=== PATIENT | male | born 1950 | race Caucasian/White ===

== ENCOUNTER 2022-03-29 10:45 | Inpatient (IN) | payer MEDICARE ==
[2022-03-29] VITALS (25 sets, daily range): BP systolic 99–158; BP diastolic 43–107
[~2022-03-29] VITALS: Ht 167.6 cm; Wt 107.0 kg
--- NOTE | 2022-03-29 11:00 | NUR ---
ATTEMPTED TO CALL PT FROM WAITING ROOM; PT IN BATHROOM AT THIS TIME
--- NOTE | 2022-03-29 11:40 | NUR ---
PT CONTINUED IN BATHROOM; CHECKED ON PT AND DENIES DISTRESS;
[2022-03-29 12:47] LABS: HEMATOCRIT 49.1 % (39.0-50.0); HEMOGLOBIN 16.5 g/dl (14.0-18.0); IMMATURE GRANULOCYTES 0.2 % (0.0-5.0); MEAN CELL VOLUME 93.3 fL CALC (80.0-100.0); MEAN CORPUSCULAR HGB 31.4 pG CALC (26.0-32.0); MEAN CORPUSCULAR HGB CONC 33.6 g/dL CAL (32.0-36.0); NEUT# 11.06 thou/uL (1.82-7.42); RED BLOOD COUNT 5.26 mill/uL (4.70-6.10); RED CELL DISTRI WIDTH 14.2 % (11.5-15.5)
--- NOTE | 2022-03-29 12:54 | NUR ---
PATIENT REPORTS BEING ON ORAL ANTIBIOTICS FOR DENTAL PAIN. NOTED TO HAVE MILD SWELLING TO LEFT LOWER JAW.
[2022-03-29 12:58] LABS: ALBUMIN 4.9 g/dL (3.2-5.0); ALKALINE PHOSPHATASE 65 u/l (38-126); ANION GAP 20 (6-22 (CALC)); BILIRUBIN, TOTAL 1.5 mg/dL (0.0-1.4); BUN 13 mg/dL (8-23); BUN/CREATININE RATIO 12 (12-20 (CALC)); CARBON DIOXIDE 19 mmol/l (22-30); CHLORIDE 101 mmol/l (95-108); GFR FOR AFR.AMER. > 60 ML/MIN (>=60 (CALC)); GFR OTHER RACES > 60 ML/MIN (>=60 (CALC)); POTASSIUM 4.2 mmol/l (3.5-5.1); SGOT/AST 26 u/l (19-48); SODIUM 136 mmol/l (137-146); TOTAL PROTEIN 7.8 g/dL (6.3-8.2)
--- NOTE | 2022-03-29 13:30 | NUR ---
MED REC COMPLETED WITH PATIENT. URINAL GIVEN
[2022-03-29] MEDS ORDERED: DILT-XR120 MG PO (13:36)
[2022-03-29] MEDS ORDERED: METFORMIN500 M2 PO (13:37)
[2022-03-29] MEDS ORDERED: LOPRESSOR50 M1 PO (13:37)
[2022-03-29] MEDS ORDERED: LISINOP/HCTZ1 TA1 PO (13:38)
[2022-03-29] MEDS ORDERED: JARDIANCE25 MG PO (13:38)
[2022-03-29] MEDS ORDERED: ASPIRIN81 MG PO (13:38)
[2022-03-29] MEDS ORDERED: PRAVASTATIN80 MG PO (13:39)
[2022-03-29 14:04] LABS: URINE BILIRUBIN - DIPSTICK NEGATIVE (NEGATIVE); URINE BLOOD DIPSTICK TRACE-INTACT (NEGATIVE); URINE COLOR YELLOW; URINE GLUCOSE - DIPSTICK >=1000 mg/dL (NEGATIVE); URINE KETONE 15 mg/dL (NEGATIVE); URINE LEUK ESTERASE NEGATIVE (NEGATIVE); URINE NITRITE - DIPSTICK NEGATIVE (Negative); URINE PH 5.5 (4.5-8.0); URINE PROTEIN - DIPSTICK NEGATIVE (NEG-TRACE); URINE SPECIFIC GRAVITY <=1.005; URINE UROBILINOGEN - DIPSTICK 0.2 E.U./dL (0.2)
--- NOTE | 2022-03-29 14:12 | NUR ---
AT BEDSIDE TO DISCUSS RESULTS AND PLAN OF CARE WITH PATIENT
--- NOTE | 2022-03-29 15:00 | NUR ---
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
--- NOTE | 2022-03-29 15:48 | NUR ---
PT ARRIVED ON UNIT @ 1505 TRANSPORTED VIA STRETCHER AND TRANSFERRED TO BED. ALERT AND ORIENTED, SETTLED IN ROOM, ORIENTED TO ROOM AND CALL RUBY, TELE MONITOR IN PLACE, CALL RUBY IN REACH AND BED LOCKED IN LOWEST POSITION.
--- NOTE | 2022-03-29 20:35 | NUR ---
PHYSICIAN NOTIFIED OF HEART RATE 170'S. PATIENT HAS CARDIZEM 120MG AND METOPROLOL 100MG SCHEDULED. NURSE SUGGESTED IV MEDICATION, PHYSICIAN INSTRUCTED TO ADMINISTER CARDIZEM 120MG PO, TRANSFER TO ICU, THEN FOLLOW UP WITH METOPROLOL.
--- NOTE | 2022-03-29 20:55 | NUR ---
ORDERS CARRIED OUT PRESCRIBED. TRANSFERRED PATIENT TO ICU BED 3 VIA WHEELCHAIR. REPORT HAND OFF TO NURSE HALINA MENDES.
--- NOTE | 2022-03-29 21:00 | NUR ---
RECEIVED PATIENT FROM MED/SURG AT THIS TIME BEDSIDE REPORT GIVEN BY RN. PATIENT PLACED ON STOCK REPLENISHER AND READING AFIB AND HR OF 133 BP AT THIS TIME IS 117/75. PATIENT GIVEN ICU ORIENTATION AND FALL SAFETY SHEET SIGNED. PATIENT DOES VERBALIZES UNDERSTANDING OF TRANSFER AT THIS TIME. PATIENT WAS STARTED ON .9 NORMAL SALINE AT 100 AT THIS TIME. PATIENT FOLLOWS ALL COMMANDS AND DENIES ANY PAIN OR NEEDS AT THIS TIME. TEMP IS 98.2 SIDERAILS ARE UP CALL LIGHT IS WITHIN REACH AT THIS TIME. WILL CONTINUE TO MONITOR.
--- NOTE | 2022-03-29 21:48 | NUR ---
PATIENT GIVEN LOPRESSOR PO 100MG AT THIS TIME. BP CURRENTLY IS 125/61. WILL CONTINUE TO MONITOR.
--- NOTE | 2022-03-29 22:02 | NUR ---
PATIENT RESTING IN BED AT THIS TIME. PATIENT DENIES ANY NEEDS AND DENIES ANY COMPLAINTS OF PAIN AT THIS TIME. PATIENT TECHNICIAN TEST SYSTEMS READING AFIB AND HR OF 145 WITH OCCASSIONAL PVC. SPO2 IS CURRENTLY 94% ON ROOMAIR AND BP AT IS TIME IS 117/66. DR. KHAN CALLED TO GIVE STATUS UPDATE ON PATIENT AT THIS TIME AND GAVE ORDERS TO CONTINUE IV FLUIDS AND TO DO A STAT MAG AND LACTIC ACID LEVEL. ALL ORDERS PLACED IN SYSTEM AND WILL FOLLOW UP WITH PHYSICIAN WHEN RESULTS ARE IN .
--- NOTE | 2022-03-29 22:54 | NUR ---
DR. TAYLOR CALLED REGARDING LACTIC ACID TEST RESULTS OF 2.6 ORDERS GIVEN AT THIS TIME FOR 500ML BOLUS OF NORMAL SALINE AND THEN 100 ML/HR AFTER BOLUS GIVEN AND REPEAT LACTIC IN 2 HOURS.
[2022-03-30] VITALS (61 sets, daily range): BP systolic 110–156; BP diastolic 54–98
--- NOTE | 2022-03-30 00:04 | NUR ---
PATIENT AWAKE AND ALERT AND ORIENTED X 3. CARDIZEM DRIP STARTED AT THIS TIME PER PHYSICIAN ORDERS AND PROTOCOL. CONSULTING PRACTICE DIRECTOR SHOWING HR OF 123 WITH OCCASIONAL PVC'S AT THIS TIME BP IS CURRENTLY 142/91 AT THIS TIME. PATIENT LOYD ANY SHORTNESS OF BREATH AND SPO2 IS CURRENTLY 93% ON ROOM AIR. SIDERAILS ARE UP CALL LIGHT IS WIHTIN REACH.
--- NOTE | 2022-03-30 00:51 | NUR ---
LAB IN TO DRAW LACTIC ACID AT THIS TIME. CARDIZEM DRIP GOING AT 15MG/HR AND CURRENT MONITOR READING SHOWING AFIB AND HR OF 99 AND BP 133/84. WILL CONTINUE TO MONITOR.
--- NOTE | 2022-03-30 02:03 | NUR ---
PATIENT RESTING IN BED AT THIS TIME STATION SUPERINTENDENT READING AFIB AND HR OF 97 BP IS CURRENTLY 129/78 SPO2 IS 94% ON ROOM AIR. SIDERAILS ARE UP CALL LIGHT WITHIN REACH.
--- NOTE | 2022-03-30 04:00 | NUR ---
PATIENT AWAKE AT BEDSIDE TO VOID. PATIENT VOIDED 250ML AT THIS TIME. PATIENT REPOSTIONED IN BED PIE ICER MACHINE READING AFIB AND HR OF 89. BP IS CURRENTLY 127/69. PATIENT DENIES ANY SHORTNESS OF BREATH AND SP02 IS CURRENTLY 92% ON ROOM AIR. WILL CONTINUE TO MONITOR.
[2022-03-30 05:07] LABS: HEMATOCRIT 43.5 % (39.0-50.0); HEMOGLOBIN 14.6 g/dl (14.0-18.0); MEAN CELL VOLUME 93.1 fL CALC (80.0-100.0); MEAN CORPUSCULAR HGB 31.3 pG CALC (26.0-32.0); MEAN CORPUSCULAR HGB CONC 33.6 g/dL CAL (32.0-36.0); RED BLOOD COUNT 4.67 mill/uL (4.70-6.10); RED CELL DISTRI WIDTH 14.1 % (11.5-15.5)
--- NOTE | 2022-03-30 05:24 | NUR ---
CARDIZEM TITRATED DOWN TO 1OMG/HR FROM 15MG/HR HR AT THIS TIME IS 83 BP IS 132/76. WILL CONTINUE TO MONITOR.
[2022-03-30 05:26] LABS: ALKALINE PHOSPHATASE 50 u/l (38-126); ANION GAP 17 (6-22 (CALC)); BILIRUBIN, TOTAL 0.9 mg/dL (0.0-1.4); BUN 13 mg/dL (8-23); BUN/CREATININE RATIO 15 (12-20 (CALC)); CARBON DIOXIDE 20 mmol/l (22-30); CHLORIDE 103 mmol/l (95-108); CREATININE 0.9 mg/dL (0.7-1.3); GFR FOR AFR.AMER. > 60 ML/MIN (>=60 (CALC)); GFR OTHER RACES > 60 ML/MIN (>=60 (CALC)); MAGNESIUM 2.1 mg/dL (1.6-2.3); POTASSIUM 3.4 mmol/l (3.5-5.1); SGOT/AST 26 u/l (19-48); SODIUM 137 mmol/l (137-146); TOTAL PROTEIN 6.8 g/dL (6.3-8.2)
--- NOTE | 2022-03-30 05:55 | NUR ---
PATIENT CARDIZEM TITRATED TO 5MG/HR FROM 10MG/HR BP AT THIS TIME IS 119/76 AND HR IS 87. PATIENT RESTING IN BED DENEIS ANY NEEDS CALL LIGHT WITHIN REACH SIDERAILS ARE UP X 2.
--- NOTE | 2022-03-30 19:45 | NUR ---
awake. denies distress. color television console monitor shows a fib. po fluids taken fair. stood to void. hr increased to 140 while voiding. fall precautions cont.
--- NOTE | 2022-03-30 22:00 | NUR ---
eyes closed. no distress. cardiac cath technologist shows a fib.
--- NOTE | 2022-03-30 23:15 | NUR ---
dr calderón vs per [employer].
[2022-03-31] VITALS (25 sets, daily range): BP systolic 103–152; BP diastolic 55–107
--- NOTE | 2022-03-31 02:00 | NUR ---
resting quietly. resps even & unlabored. no apparent distress.
--- NOTE | 2022-03-31 04:30 | NUR ---
amb self to br per request for bm then back to bed. freddie well.
--- NOTE | 2022-03-31 04:40 | NUR ---
lab here. blood drawn.
[2022-03-31 05:11] LABS: HEMATOCRIT 42.5 % (39.0-50.0); MEAN CELL VOLUME 94.7 fL CALC (80.0-100.0); MEAN CORPUSCULAR HGB 31.2 pG CALC (26.0-32.0); MEAN CORPUSCULAR HGB CONC 32.9 g/dL CAL (32.0-36.0); RED BLOOD COUNT 4.49 mill/uL (4.70-6.10); RED CELL DISTRI WIDTH 14.3 % (11.5-15.5)
[2022-03-31 05:47] LABS: ALBUMIN 3.9 g/dL (3.2-5.0); ALKALINE PHOSPHATASE 46 u/l (38-126); ANION GAP 12 (6-22 (CALC)); BILIRUBIN, TOTAL 0.8 mg/dL (0.0-1.4); BUN 12 mg/dL (8-23); BUN/CREATININE RATIO 15 (12-20 (CALC)); CARBON DIOXIDE 23 mmol/l (22-30); CHLORIDE 105 mmol/l (95-108); CREATININE 0.8 mg/dL (0.7-1.3); GFR FOR AFR.AMER. > 60 ML/MIN (>=60 (CALC)); GFR OTHER RACES > 60 ML/MIN (>=60 (CALC)); MAGNESIUM 2.1 mg/dL (1.6-2.3); POTASSIUM 3.6 mmol/l (3.5-5.1); SGOT/AST 33 u/l (19-48); SODIUM 136 mmol/l (137-146); TOTAL PROTEIN 6.8 g/dL (6.3-8.2)
--- NOTE | 2022-03-31 06:00 | NUR ---
eyes closed. no distress. color television console monitor shows a fib.
--- NOTE | 2022-03-31 07:26 | NUR ---
pt awake, oriented, denies pain, juice provided per request after bedside fingerstick
--- NOTE | 2022-03-31 09:03 | NUR ---
pt took PO meds without difficulty, HR remains controlled with cardizem off, continues A-fib
--- NOTE | 2022-03-31 11:19 | NUR ---
pt with at bedside, denies needs, gets up to bedside to use urinal
--- NOTE | 2022-03-31 13:07 | NUR ---
pt was up to side of bed for lunch, ate 100%, continues at bedside, denies needs
--- NOTE | 2022-03-31 15:16 | NUR ---
pt continues with at bedside, denies needs
--- NOTE | 2022-03-31 17:54 | NUR ---
pt c/o lower jaw pain to L side, tylenol was given, pt states pain level improved
--- NOTE | 2022-03-31 19:15 | NUR ---
awake. denies distress. cardiac/vascular sonographer shows a fib. saline lock x2 in place. po fluids taken well. voids per urinal. fall precautions cont.
--- NOTE | 2022-03-31 22:00 | NUR ---
watching tv. no distress. monitoring tech shows a fib.
[2022-04-01] VITALS (11 sets, daily range): BP systolic 106–164; BP diastolic 62–120
--- NOTE | 2022-04-01 00:01 | NUR ---
eyes closed. no distress.
--- NOTE | 2022-04-01 02:00 | NUR ---
resting quietly. resps even & unlabored. no apparent distress.
--- NOTE | 2022-04-01 04:00 | NUR ---
lab here. blood drawn.
[2022-04-01 05:02] LABS: HEMATOCRIT 39.7 % (39.0-50.0); HEMOGLOBIN 13.2 g/dl (14.0-18.0); MEAN CELL VOLUME 94.7 fL CALC (80.0-100.0); MEAN CORPUSCULAR HGB 31.5 pG CALC (26.0-32.0); MEAN CORPUSCULAR HGB CONC 33.2 g/dL CAL (32.0-36.0); RED BLOOD COUNT 4.19 mill/uL (4.70-6.10); RED CELL DISTRI WIDTH 14.2 % (11.5-15.5)
[2022-04-01 05:26] LABS: ANION GAP 11 (6-22 (CALC)); BUN 11 mg/dL (8-23); BUN/CREATININE RATIO 16 (12-20 (CALC)); CARBON DIOXIDE 23 mmol/l (22-30); CHLORIDE 104 mmol/l (95-108); CREATININE 0.7 mg/dL (0.7-1.3); GFR FOR AFR.AMER. > 60 ML/MIN (>=60 (CALC)); GFR OTHER RACES > 60 ML/MIN (>=60 (CALC)); MAGNESIUM 1.9 mg/dL (1.6-2.3); POTASSIUM 3.7 mmol/l (3.5-5.1); SODIUM 134 mmol/l (137-146)
--- NOTE | 2022-04-01 06:00 | NUR ---
awake. no c/o. monitor car operator shows a fib.
--- NOTE | 2022-04-01 10:18 | NUR ---
pt taken to ultrasound for echo per w/c
--- NOTE | 2022-04-01 10:55 | NUR ---
HAND OFF REPORT GIVEN TO HALINA GONSALEZ PATIENT RETURNED FROM ECHO, TAKEN TP 262 BY WHEELCHAIR, WITH AND ALL BELONGINGS, NO C/O PAIN OR DISCOMFORT, NO S/S OF DISTRESS NOTED, RESPIRATIONS EVEN AND UNLABORED.
--- NOTE | 2022-04-01 10:56 | NUR ---
PT ARRIVED TO ROOM 262 ACCOMPAINED BY . PT TRANSPORTED VIA WHEELCHAIR FROM ICU TO ECHO TO MS. A&O X4. NO APPARENT DISTRESS NOTED. IV SITES APPEARS HEALTHY AND FLUSH WELL. PT DENIES ANY COMPLAINTS AT THIS TIME. CALL LIGHT WITHIN REACH. WILL CONTINUE TO MONITOR.
--- NOTE | 2022-04-01 11:19 | NUR ---
LUZ ELENA GREGG AT BEDSIDE.
[2022-04-01] MEDS ORDERED: AMOX/K CLAV875 M1 PO (12:22)
--- NOTE | 2022-04-01 13:19 | NUR ---
IV site discontinued, cath intact. No edema , no redness, voices no discomfort.
--- NOTE | 2022-04-01 13:23 | NUR ---
Discharge instructions given. Patient verbalizes understanding of same. Discharged in stable condition via Ambulatory to Home with family. All belongings sent with pt.
== END 2022-04-01 13:23 | disposition home or self-care (01) | DRG 872 ==
LOC: ED 10:45 → ED-I 14:16 → ED 14:16 → ICU 14:28 → MS2 14:28 → ICU 21:00 → MS2 04-01 10:54
PROVIDERS: Family Medicine; ADMIT Internal Medicine; ATTEND Internal Medicine
PROC: 3E02340 Introduction of Influenza Vaccine into Muscle, Percutaneous Approach (ICD-10-PCS; principal; 2022-04-01)
PROC: 3E0234Z Introduction of Serum, Toxoid and Vaccine into Muscle, Percutaneous Approach (ICD-10-PCS; 2022-04-01)
DX: A41.9 Sepsis, unspecified organism (principal); E87.20 Acidosis, unspecified; I48.19 Other persistent atrial fibrillation; K04.7 Periapical abscess without sinus; K02.9 Dental caries, unspecified; I10 Essential (primary) hypertension; E11.9 Type 2 diabetes mellitus without complications; I25.10 Atherosclerotic heart disease of native coronary artery without angina pectoris; Z20.822 Contact with and (suspected) exposure to COVID-19; E78.5 Hyperlipidemia, unspecified; I25.2 Old myocardial infarction; Z79.84 Long term (current) use of oral hypoglycemic drugs; Z23 Encounter for immunization; Z95.1 Presence of aortocoronary bypass graft; G47.33 Obstructive sleep apnea (adult) (pediatric)
CPT/HCPCS: J1650

== ENCOUNTER 2024-01-05 16:12 | Observation (INO) | payer MEDICARE ==
[~2024-01-05] VITALS: Ht 167.6 cm; Wt 102.8 kg
[2024-01-05] VITALS (15 sets, daily range): BP systolic 144–181; BP diastolic 70–99
[~2024-01-05 16:12] MED LIST: AMOX/K CLAV875 M1 PO; ASPIRIN81 MG PO; DILT-XR120 MG PO; FUROSEMIDE20 MG PO; JARDIANCE25 MG PO; KLOR-CON M1010 MEQ PO; LISINOP/HCTZ1 TA1 PO; LOPRESSOR50 M1 PO; METFORMIN500 M2 PO; MOUNJARO5 MG SC; NERVIVE PO; NEXIUM20 MG PO; PRAVASTATIN80 MG PO; TAMSULOSIN0.4 MG PO
[2024-01-05] MEDS ORDERED: ASPIRIN 81 MG/TAB PO ONE (16:30)
[2024-01-05 17:07] LABS: BASO% 0.2 % (0-3); HEMATOCRIT 39.6 % (39.0-50.0); HEMOGLOBIN 13.4 g/dl (14.0-18.0); IMMATURE GRANULOCYTES 0.3 % (0.0-5.0); LYMPH% 18.5 % (15-41); MEAN CORPUSCULAR HGB 29.5 pG CALC (26.0-32.0); MEAN CORPUSCULAR HGB CONC 33.8 g/dL CAL (32.0-36.0); MONO% 9.1 % (2-13); NEUT# 4.14 thou/uL (1.82-7.42); NEUT% 70.9 % (42-76); RED BLOOD COUNT 4.55 mill/uL (4.70-6.10); RED CELL DISTRI WIDTH 13.7 % (11.5-15.5)
[2024-01-05 17:19] LABS: ALBUMIN 4.4 g/dL (3.2-5.0); ALKALINE PHOSPHATASE 55 u/l (38-126); BUN 15 mg/dL (8-23); BUN/CREATININE RATIO 17 (12-20 (CALC)); CHLORIDE 96 mmol/l (95-108); CREATININE 0.9 mg/dL (0.7-1.3); ESTIMATED GFR 91 ML/MIN (>=90 (CALC)); SGOT/AST 29 u/l (19-48); SODIUM 135 mmol/l (137-146); TOTAL PROTEIN 7.5 g/dL (6.3-8.2)
[2024-01-05 17:22] LABS: ANION GAP 12 (6-22 (CALC)); BILIRUBIN, TOTAL 1.2 mg/dL (0.2-1.3); CARBON DIOXIDE 30 mmol/l (22-30); POTASSIUM 2.7 mmol/l (3.5-5.1)
[2024-01-05] MEDS ORDERED: POTASSIUM CHLORIDE 20MEQ 100 ML IV ONE ×2 (18:30)
[2024-01-05] MEDS ORDERED: MAGNESIUM SULFATE HEPTAHYDRATE 50 ML IV ONE ×2 (18:30→23:45)
[2024-01-05] MEDS ORDERED: MAGNESIUM SULFATE HEPTAHYDRATE 2 GM in SODIUM CHLORIDE 0.9% 50 ML IV ONE ×2 (19:45→23:35)
[2024-01-05] MEDS ORDERED: SODIUM CHLORIDE 0.9% 1,000 ML IV ONE ×2 (20:05→21:12)
[2024-01-05] MEDS ORDERED: NITROGLYCERIN 0.4 MG/TAB SL PRN (20:30)
[2024-01-05] MEDS ORDERED: ACETAMINOPHEN 325 MG/TAB PO PRN (20:30)
[2024-01-05] MEDS ORDERED: MORPHINE SULFATE 4 MG/ML VIAL IV PRN (20:30)
[2024-01-05] MEDS ORDERED: MAGNESIUM HYDROXIDE 30 ML UDC PO PRN (20:30)
[2024-01-05] MEDS ORDERED: hydrALAZINE HCL 20 MG/ML VIAL(1 ML) IV PRN (20:35)
[2024-01-05] MEDS ORDERED: ONDANSETRON HCl 4 MG/2 ML SDV IV PRN (20:35)
[2024-01-05] MEDS ORDERED: LACTATED RINGER'S 1,000 ML IV PRN (20:40)
[2024-01-05] MEDS ORDERED: ENOXAPARIN SODIUM 40 MG/0.4 ML SYR SC SCH (21:00)
[2024-01-05] MEDS ORDERED: INSULIN LISPRO 100 UNITS/ML ML SC SCH ×2 (21:00)
[2024-01-05] MEDS ORDERED: METOPROLOL TARTRATE 50 MG/TAB PO SCH (21:00)
[2024-01-05] MEDS ORDERED: ATORVASTATIN CALCIUM 40 MG/TAB PO SCH (21:00)
[2024-01-05] MEDS ORDERED: POTASSIUM CHLORIDE 20 MEQ/TAB PO ONE (22:15)
[2024-01-06] VITALS: BP 162/87
[2024-01-06 04:00] VITALS: BP 147/74
[2024-01-06 04:15] VITALS: BP 147/74
[2024-01-06 06:02] LABS: BASO% 0.3 % (0-3); EOS% 1.2 % (0-8); HEMOGLOBIN 13.2 g/dl (14.0-18.0); IMMATURE GRANULOCYTES 0.3 % (0.0-5.0); MEAN CELL VOLUME 87.8 fL CALC (80.0-100.0); MEAN CORPUSCULAR HGB 29.7 pG CALC (26.0-32.0); MEAN CORPUSCULAR HGB CONC 33.8 g/dL CAL (32.0-36.0); MONO% 8.7 % (2-13); NEUT# 4.89 thou/uL (1.82-7.42); NEUT% 72.5 % (42-76); RED BLOOD COUNT 4.44 mill/uL (4.70-6.10); RED CELL DISTRI WIDTH 13.6 % (11.5-15.5)
[2024-01-06 06:20] LABS: BILIRUBIN, TOTAL 1.3 mg/dL (0.2-1.3); CHOLESTEROL HDL RATIO 3.8 (<4.4 (CALC)); CREATININE 0.7 mg/dL (0.7-1.3); TOTAL PROTEIN 6.6 g/dL (6.3-8.2)
[2024-01-06 06:29] LABS: MAGNESIUM 1.8 mg/dL (1.6-2.3)
[2024-01-06 06:51] VITALS: BP 181/86
[2024-01-06 07:22] VITALS: BP 166/97
[2024-01-06] MEDS ORDERED: TAMSULOSIN HCL 0.4 MG CAP PO SCH (08:00)
[2024-01-06] MEDS ORDERED: LISINOPRIL 20 MG/TAB PO SCH (09:00)
[2024-01-06] MEDS ORDERED: CALCIUM GLUCONATE 1 GM in SODIUM CHLORIDE 0.9% 50 ML IV SCH (09:00)
[2024-01-06] MEDS ORDERED: ASPIRIN 81 MG/TAB PO SCH (09:00)
[2024-01-06] MEDS ORDERED: POTASSIUM CHLORIDE 20 MEQ/TAB PO SCH (09:00)
[2024-01-06 10:25] VITALS: BP 131/76
[2024-01-06] MEDS ORDERED: KLOR-CON M2020 MEQ PO (11:36)
== END 2024-01-06 12:57 | disposition home or self-care (01) ==
LOC: ED 16:12 → ED-I 19:27 → ED 19:57 → MS2 19:58
PROVIDERS: Family Medicine; ADMIT Student in an Organized Health Care Education/Training Program; ATTEND Student in an Organized Health Care Education/Training Program
DX: R07.9 Chest pain, unspecified (principal); E83.42 Hypomagnesemia; E87.6 Hypokalemia; I10 Essential (primary) hypertension; E11.9 Type 2 diabetes mellitus without complications; I25.10 Atherosclerotic heart disease of native coronary artery without angina pectoris; I48.19 Other persistent atrial fibrillation; G47.33 Obstructive sleep apnea (adult) (pediatric); I25.2 Old myocardial infarction; I69.998 Other sequelae following unspecified cerebrovascular disease; G58.8 Other specified mononeuropathies; Z95.1 Presence of aortocoronary bypass graft; Z79.84 Long term (current) use of oral hypoglycemic drugs; Z87.891 Personal history of nicotine dependence
CPT/HCPCS: J3475